=== PATIENT | female | born 1955 | race Caucasian/White ===

== ENCOUNTER 2017-04-07 12:31 | Emergency (ER) | payer MEDICAID ==
[~2017-04-07] VITALS: Ht 170.2 cm; Wt 52.8 kg
[2017-04-07 12:33] VITALS: BP 118/75
[2017-04-07] MEDS ORDERED: ALBUTEROL/IPRATROPIUM 2.5MG/0.5MG, 3 ML NPPB ONE (13:00)
[2017-04-07] MEDS ORDERED: IBUPROFEN 200 MG TABLET PO ONE (13:00)
[2017-04-07] MEDS ORDERED: ALBUTEROL/IPRATROPIUM 2.5MG/0.5MG, 3 ML ONE (13:15)
[2017-04-07] MEDS ORDERED: IBUPROFEN 200 MG TABLET ONE (13:16)
== END 2017-04-07 14:15 | disposition home or self-care (01) ==
LOC: ED 14:09
DX: J45.41 Moderate persistent asthma with (acute) exacerbation (principal); F17.200 Nicotine dependence, unspecified, uncomplicated
CPT/HCPCS: 94640; 99283; J7620

== ENCOUNTER 2017-04-20 09:53 | Emergency (ER) | payer MEDICAID ==
[~2017-04-20] VITALS: Ht 167.6 cm; Wt 56.0 kg
[2017-04-20 10:13] VITALS: BP 117/79
== END 2017-04-20 10:44 | disposition home or self-care (01) ==
LOC: ED 10:38
DX: Z76.0 Encounter for issue of repeat prescription (principal); J45.31 Mild persistent asthma with (acute) exacerbation
CPT/HCPCS: 99283

== ENCOUNTER 2017-05-01 23:56 | Emergency (ER) | payer MEDICAID ==
[~2017-05-01] VITALS: Ht 167.6 cm; Wt 56.2 kg
[2017-05-02] VITALS: BP 153/95
== END 2017-05-02 00:35 | disposition home or self-care (01) ==
LOC: ED 05-02 00:32
DX: Z76.0 Encounter for issue of repeat prescription (principal); J44.9 Chronic obstructive pulmonary disease, unspecified
CPT/HCPCS: 99283